=== PATIENT | male | born 1995 | race African-American/Black ===

== ENCOUNTER 2017-09-03 20:13 | Emergency (ER) | payer MEDICAID ==
[~2017-09-03] VITALS: Ht 172.7 cm; Wt 753.0 kg
[2017-09-03] MEDS ORDERED: ESCI5TAB MT (20:33)
[2017-09-03] MEDS ORDERED: OLAN2.5T3 MT (20:34)
[2017-09-03] MEDS ORDERED: LITH150C MT (20:34)
[2017-09-03] MEDS ORDERED: NEOAPJ IM (20:35)
[2017-09-03] MEDS ORDERED: QUET25TA MT (20:35)
[2017-09-03] MEDS ORDERED: DIVA125T2 MT (20:36)
[2017-09-03] MEDS ORDERED: OLANZAPINE 10 MG/VIAL IM ONE (21:00)
[2017-09-03 21:18] LABS: CLARITY URINE CLEAR (CLEAR); COLOR URINE YELLOW (YELLOW); KETONES URINE NEGATIVE (NEGATIVE); LEUKOCYTE ESTERASE URINE NEGATIVE (NEGATIVE); NITRITE URINE NEGATIVE (NEGATIVE); OCCULT BLOOD URINE NEGATIVE (NEGATIVE); PROTEIN URINE NEGATIVE (NEGATIVE); SPECIFIC GRAVITY URINE 1.029 (1.005-1.030); UROBILINOGEN URINE 0.2 E.U./dL (0.2-1.0)
[2017-09-03 21:28] LABS: BASOPHILS % 0.9 % (0.0-2.0); EOSINOPHILS % 7.4 % (0.0-5.0); HEMATOCRIT. 40.1 % (42.0-52.0); HEMOGLOBIN. 13.6 g/dL (14.0-18.0); LYMPHOCYTES % 46.4 % (20.0-50.0); MEAN CORPUSCULAR HEMOGLOBIN 30.4 pg (28.0-32.0); MEAN CORPUSCULAR VOLUME 89.5 fL (80.0-94.0); MEAN PLATELET VOLUME 7.8 fl (7.4-10.4); MONOCYTES % 8.4 % (2.0-8.0); NEUTROPHILS % 36.9 % (40.0-76.0); PLATELET 260 x1000/uL (130-400); RED BLOOD CELL COUNT 4.48 mill/uL (4.7-6.1); RED CELL DISTRIBUTION WIDTH 14.2 % (11.6-14.6)
[2017-09-03 21:29] LABS: CHLORIDE 104 mEq/L (98-107)
[2017-09-03 21:29] LABS: *BENZODIAZEPINES SCREEN URINE NEGATIVE (NEGATIVE); *COCAINE SCREEN URINE NEGATIVE (NEGATIVE); METHADONE URINE SCREEN NEGATIVE (NEGATIVE); OPIATES URINE SCREEN NEGATIVE (NEGATIVE)
[2017-09-03 21:30] LABS: *AMPHETAMINES SCREEN URINE PRESUMTIVE POSITIVE (NEGATIVE); *BARBITURATES SCREEN URINE NEGATIVE (NEGATIVE); CANNABINOID URINE SCREEN NEGATIVE (NEGATIVE); PHENCYCLIDINE URINE SCREEN NEGATIVE (NEGATIVE)
[2017-09-03 21:33] LABS: ETHANOL BLOOD < 10 mg/dL
[2017-09-04 11:00] VITALS: BP 120/68
== END 2017-09-04 12:15 | disposition home or self-care (01) ==
LOC: ER 20:25
DX: F19.10 Other psychoactive substance abuse, uncomplicated (principal); R44.0 Auditory hallucinations; F32.9 Major depressive disorder, single episode, unspecified; F17.200 Nicotine dependence, unspecified, uncomplicated; Z88.2 Allergy status to sulfonamides
CPT/HCPCS: 36415; 80048; 80305; 80307; 80329; 81003; 85025; 96372; 99284; G0482; J3490

== ENCOUNTER 2018-07-01 02:14 | Emergency (ER) | payer MEDICAID ==
[~2018-07-01] VITALS: Ht 177.8 cm; Wt 73.0 kg
[~2018-07-01 02:14] MED LIST: DIVA125T2 MT; ESCI5TAB MT; LITH150C MT; NEOAPJ IM; OLAN2.5T3 MT; QUET25TA MT
[2018-07-01 04:14] LABS: BASOPHILS % 0.8 % (0.0-2.0); EOSINOPHILS % 0.7 % (0.0-5.0); HEMATOCRIT. 39.7 % (42.0-52.0); LYMPHOCYTES % 30.4 % (20.0-50.0); MEAN CORPUSCULAR HEMOGLOBIN 30.9 pg (28.0-32.0); MEAN CORPUSCULAR VOLUME 87.4 fL (80.0-94.0); MEAN PLATELET VOLUME 7.9 fl (7.4-10.4); NEUTROPHILS % 58.1 % (40.0-76.0); PLATELET 257 x1000/uL (130-400); RED BLOOD CELL COUNT 4.54 mill/uL (4.7-6.1); RED CELL DISTRIBUTION WIDTH 13.9 % (11.6-14.6)
[2018-07-01 04:16] LABS: CHLORIDE 101 mEq/L (98-107)
[2018-07-01 04:20] LABS: CLARITY URINE CLEAR (CLEAR); COLOR URINE YELLOW (YELLOW); ETHANOL BLOOD < 10 mg/dL; KETONES URINE NEGATIVE (NEGATIVE); LEUKOCYTE ESTERASE URINE NEGATIVE (NEGATIVE); NITRITE URINE NEGATIVE (NEGATIVE); OCCULT BLOOD URINE NEGATIVE (NEGATIVE); PH URINE 6.5 (4.5-8.0); PROTEIN URINE NEGATIVE (NEGATIVE); SPECIFIC GRAVITY URINE 1.012 (1.005-1.030); UROBILINOGEN URINE 0.2 E.U./dL (0.2-1.0)
[2018-07-01 04:30] LABS: *BARBITURATES SCREEN URINE NEGATIVE (NEGATIVE); *BENZODIAZEPINES SCREEN URINE NEGATIVE (NEGATIVE); *COCAINE SCREEN URINE NEGATIVE (NEGATIVE); METHADONE URINE SCREEN NEGATIVE (NEGATIVE); OPIATES URINE SCREEN NEGATIVE (NEGATIVE)
[2018-07-01 04:31] LABS: PHENCYCLIDINE URINE SCREEN NEGATIVE (NEGATIVE)
[2018-07-01 04:32] LABS: CANNABINOID URINE SCREEN NEGATIVE (NEGATIVE)
[2018-07-01 04:33] LABS: *AMPHETAMINES SCREEN URINE PRESUMTIVE POSITIVE (NEGATIVE)
[2018-07-01 05:39] VITALS: BP 145/76
== END 2018-07-01 05:42 | disposition home or self-care (01) ==
LOC: ER 02:14
DX: F20.9 Schizophrenia, unspecified (principal); F31.9 Bipolar disorder, unspecified; F17.200 Nicotine dependence, unspecified, uncomplicated; Z79.899 Other long term (current) drug therapy; Z88.2 Allergy status to sulfonamides
CPT/HCPCS: 36415; 80305; 80307; 80320; 80329; 99283; 99284; G0480

== ENCOUNTER 2018-12-27 00:43 | Emergency (ER) | payer MEDICAID ==
[~2018-12-27] VITALS: Ht 180.3 cm; Wt 75.0 kg
[2018-12-27 01:27] LABS: BASOPHILS % 0.8 % (0.0-2.0); EOSINOPHILS % 2.7 % (0.0-5.0); HEMATOCRIT. 42.2 % (42.0-52.0); HEMOGLOBIN. 14.9 g/dL (14.0-18.0); LYMPHOCYTES % 34.7 % (20.0-50.0); MEAN CORPUSCULAR VOLUME 90.4 fL (80.0-94.0); MONOCYTES % 10.9 % (2.0-8.0); NEUTROPHILS % 50.9 % (40.0-76.0); PLATELET 253 x1000/uL (130-400); RED BLOOD CELL COUNT 4.67 mill/uL (4.7-6.1); RED CELL DISTRIBUTION WIDTH 13.9 % (11.6-14.6)
[2018-12-27 01:37] LABS: CHLORIDE 103 mEq/L (98-107)
[2018-12-27 01:41] LABS: ETHANOL BLOOD < 10 mg/dL
[2018-12-27 02:01] VITALS: BP 122/78
== END 2018-12-27 02:38 | disposition home or self-care (01) ==
LOC: ER 00:43
DX: R44.0 Auditory hallucinations (principal); Z59.0 Homelessness; R03.0 Elevated blood-pressure reading, without diagnosis of hypertension
CPT/HCPCS: 36415; 80320; 99284; G0480

== ENCOUNTER 2019-01-27 01:57 | Emergency (ER) | payer MEDICAID ==
[~2019-01-27] VITALS: Ht 175.3 cm; Wt 80.0 kg
[2019-01-27] MEDS ORDERED: DIPHENHYDRAMINE 50MG/ML VIAL IM STA (04:18)
[2019-01-27 07:04] VITALS: BP 128/74
== END 2019-01-27 07:05 | disposition home or self-care (01) ==
LOC: ER 02:25
DX: F15.10 Other stimulant abuse, uncomplicated (principal); F20.9 Schizophrenia, unspecified; F17.200 Nicotine dependence, unspecified, uncomplicated; Z91.14 Patient's other noncompliance with medication regimen; Z88.2 Allergy status to sulfonamides; Z79.899 Other long term (current) drug therapy
CPT/HCPCS: 96372; 99284; J1200

== ENCOUNTER 2021-03-18 04:00 | Emergency (ER) | payer MEDICAID ==
[~2021-03-18] VITALS: Ht 172.7 cm; Wt 80.0 kg
[2021-03-18 05:39] LABS: BASOPHILS % 0.5 % (0.0-2.0); EOSINOPHILS % 1.3 % (0.0-5.0); HEMATOCRIT. 37.7 % (42.0-52.0); HEMOGLOBIN. 12.9 g/dL (14.0-18.0); LYMPHOCYTES % 31.4 % (20.0-50.0); MEAN CORPUSCULAR HEMOGLOBIN 29.2 pg (28.0-32.0); MEAN CORPUSCULAR VOLUME 85.2 fL (80.0-94.0); MEAN PLATELET VOLUME 7.9 fl (7.4-10.4); MONOCYTES % 8.8 % (2.0-8.0); PLATELET 271 x1000/uL (130-400); RED BLOOD CELL COUNT 4.42 mill/uL (4.7-6.1); RED CELL DISTRIBUTION WIDTH 14.8 % (11.6-14.6)
[2021-03-18 05:45] LABS: CHLORIDE 103 mEq/L (98-107)
[2021-03-18 05:50] LABS: ETHANOL BLOOD < 10 mg/dL
[2021-03-18 08:59] LABS: CLARITY URINE CLEAR (CLEAR); COLOR URINE YELLOW (YELLOW); KETONES URINE NEGATIVE (NEGATIVE); LEUKOCYTE ESTERASE URINE NEGATIVE (NEGATIVE); NITRITE URINE NEGATIVE (NEGATIVE); OCCULT BLOOD URINE NEGATIVE (NEGATIVE); PH URINE 7.5 (4.5-8.0); PROTEIN URINE NEGATIVE (NEGATIVE)
[2021-03-18 09:23] LABS: METHADONE URINE SCREEN NEGATIVE (NEGATIVE); OPIATES URINE SCREEN NEGATIVE (NEGATIVE)
[2021-03-18 09:24] LABS: *AMPHETAMINES SCREEN URINE PRESUMTIVE POSITIVE (NEGATIVE); *BARBITURATES SCREEN URINE NEGATIVE (NEGATIVE); *BENZODIAZEPINES SCREEN URINE NEGATIVE (NEGATIVE); *COCAINE SCREEN URINE NEGATIVE (NEGATIVE); CANNABINOID URINE SCREEN NEGATIVE (NEGATIVE); PHENCYCLIDINE URINE SCREEN NEGATIVE (NEGATIVE)
[2021-03-18] MEDS ORDERED: HYDROXYZINE 10 MG TABLET PO PRN (12:30)
[2021-03-18] MEDS ORDERED: PEN G BENZ/PEN G PROCAINE CR 1.2 MMU/2 ML IM ONE (14:15)
[2021-03-18] MEDS: QUETIAPINE FUMARATE 50MG TABLET PO SCH (20:41)
[2021-03-19] MEDS ORDERED: HALOPERIDOL LACTATE 5MG/ML VIAL IM ONE (10:45)
[2021-03-19] MEDS ORDERED: DIPHENHYDRAMINE 50MG/ML VIAL IM ONE (10:45)
[2021-03-19] MEDS ORDERED: LORAZEPAM 2MG/ML CPJ IM ONE (10:45)
[2021-03-19] MEDS: QUETIAPINE FUMARATE 50MG TABLET PO SCH (21:41)
[2021-03-20 06:00] VITALS: BP 110/65
== END 2021-03-20 06:20 | disposition home or self-care (01) ==
LOC: ER 04:15
DX: F20.0 Paranoid schizophrenia (principal); R00.0 Tachycardia, unspecified; D64.9 Anemia, unspecified; Z20.822 Contact with and (suspected) exposure to COVID-19; E87.6 Hypokalemia; F15.90 Other stimulant use, unspecified, uncomplicated; Z73.6 Limitation of activities due to disability; Z59.00 Homelessness unspecified
CPT/HCPCS: 36415; 80048; 80076; 80305; 80307; 80320; 80329; 81003; 85025; 87426; 96372; 99285; C9803; J0558; U0003; U0005; G0480

== ENCOUNTER 2021-07-08 20:05 | Emergency (ER) | payer MEDICAID, OTHER ==
[~2021-07-08] VITALS: Ht 177.8 cm; Wt 75.0 kg
[2021-07-08 22:38] LABS: BASOPHILS % 0.8 % (0.0-2.0); EOSINOPHILS % 0.9 % (0.0-5.0); HEMATOCRIT. 40.7 % (42.0-52.0); HEMOGLOBIN. 14.5 g/dL (14.0-18.0); LYMPHOCYTES % 40.9 % (20.0-50.0); MEAN CORPUSCULAR HEMOGLOBIN 30.4 pg (28.0-32.0); MEAN CORPUSCULAR VOLUME 85.8 fL (80.0-94.0); MEAN PLATELET VOLUME 8.4 fl (7.4-10.4); MONOCYTES % 6.6 % (2.0-8.0); NEUTROPHILS % 50.8 % (40.0-76.0); PLATELET 314 x1000/uL (130-400); RED BLOOD CELL COUNT 4.75 mill/uL (4.7-6.1); RED CELL DISTRIBUTION WIDTH 14.4 % (11.6-14.6)
[2021-07-08 22:45] LABS: CHLORIDE 104 mEq/L (98-107)
[2021-07-08 22:52] LABS: ETHANOL BLOOD < 10 mg/dL
[2021-07-08 22:54] LABS: HCG SCREEN NEGATIVE
[2021-07-08 22:56] LABS: *AMPHETAMINES SCREEN URINE PRESUMTIVE POSITIVE (NEGATIVE); *BARBITURATES SCREEN URINE NEGATIVE (NEGATIVE); *BENZODIAZEPINES SCREEN URINE PRESUMTIVE POSITIVE (NEGATIVE); *COCAINE SCREEN URINE NEGATIVE (NEGATIVE); CANNABINOID URINE SCREEN NEGATIVE (NEGATIVE); METHADONE URINE SCREEN NEGATIVE (NEGATIVE); OPIATES URINE SCREEN NEGATIVE (NEGATIVE); PHENCYCLIDINE URINE SCREEN NEGATIVE (NEGATIVE)
[2021-07-09] MEDS ORDERED: LORAZEPAM 1MG TABLET PO ONE
[2021-07-09] MEDS: OLANZAPINE 10MG TABLET PO SCH ×2 (00:47→09:10)
[2021-07-09 11:14] VITALS: BP 116/68
== END 2021-07-09 11:14 | disposition home or self-care (01) ==
LOC: ER 20:05
DX: R45.851 Suicidal ideations (principal); F23 Brief psychotic disorder; F15.10 Other stimulant abuse, uncomplicated; Z79.899 Other long term (current) drug therapy; Z20.822 Contact with and (suspected) exposure to COVID-19
CPT/HCPCS: 36415; 80048; 80076; 80305; 80307; 80320; 80329; 84703; 85025; 87426; 99285; C9803; U0003; U0005; G0480

== ENCOUNTER 2022-01-06 10:28 | Emergency (ER) | payer MEDICAID ==
[~2022-01-06] VITALS: Ht 177.8 cm; Wt 80.0 kg
[2022-01-06 10:30] VITALS: BP 132/100
== END 2022-01-07 00:59 | disposition left against medical advice (07) ==
LOC: ER 10:28
DX: Z53.21 Procedure and treatment not carried out due to patient leaving prior to being seen by health care provider (principal)